=== PATIENT | female | born 1975 | race Caucasian/White ===

== ENCOUNTER 2019-03-04 07:00 | Outpatient (CLI) | payer OTHER ==
[2019-03-04 20:39] LABS: CANDIDA GROUP DNA NEGATIVE (NEGATIVE); CANDIDA KRUSEI DNA NEGATIVE (NEGATIVE); TRICHOMONAS VAGINALIS DNA NEGATIVE (NEGATIVE)
[2019-03-04 22:15] LABS: TRICHOMONAS VAGINALIS DNA NEGATIVE (NEGATIVE)
== END 2019-03-04 23:59 | disposition home or self-care (01) ==
LOC: LAB.R 07:00
PROVIDERS: ATTEND Obstetrics & Gynecology
DX: T19.2XXA Foreign body in vulva and vagina, initial encounter (principal)
CPT/HCPCS: 87491; 87591; 87661; 87801

== ENCOUNTER 2023-02-27 12:53 | Outpatient (CLI) | payer OTHER ==
--- NOTE | 2023-03-02 10:00 | Mammography Report ---
BILATERAL DIGITAL SCREENING MAMMOGRAM 3D/2D WITH EXAGGERATED CC: 02/27/2023 CLINICAL: Routine screening. Multiple family members with breast cancer. Comparison is made to exams dated: 02/02/2019 mammogram and 12/26/2015 mammogram - [facility]. Both breasts are heterogeneously dense, which may obscure small masses (category c / 51-75% glandular tissue). There is a possible new oval equal density asymmetry with coarse calcifications in the right breast p osterior depth superior region seen on the mediolateral oblique view only. No other significant masses, calcifications, or other findings are seen in either breast. IMPRESSION: INCOMPLETE: NEEDS ADDITIONAL IMAGING EVALUATION The possible new oval equal density asymmetry in the right breast resembles fibroglandular tissue and is indeterminate. Additional views with possible ultrasound are recommended. Based on Tyrer-Cuzick model (a risk assessment model), the patient's lifetime risk is 30.3% and her 1 0 year risk is 6.8%. If a patient has an elevated risk, a more comprehensive evaluation should be con sidered and/or a referral to a genetic counselor. The [place] [employer], [place], and NCCN Guidelines advise the consideration of Breast MRI as an adjunct to screening mammog sameer in patients whose "Lifetime risk to develop breast cancer" is 20% or higher. This exam was interpreted at Station ID: [id number]. NOTE: For mammograms, a report in lay terms will be sent to the patient. Approximately 15% of breast malignancies will not be visualized mammographically. In the management of a palpable breast mass, a negative mammogram must not discourage biopsy of a clinically suspicious lesion. Electronically Signed By: Adams Brown M.D. aty/:02/27/2023 16:12:08 ACR BI-RADS Category 0: Incomplete 3340F PARENCHYMAL PATTERN: (D) - The breast(s) demonstrate(s) heterogeneously dense fibroglandular paralysha grigsby. BI-RADS CATEGORY: (0) - 0 Mammo and [place] [id number] Immediate follow-up LATERALITY: (R)
== END 2023-02-27 12:54 | disposition home or self-care (01) ==
LOC: DI 12:53
DX: Z12.31 Encounter for screening mammogram for malignant neoplasm of breast (principal); Z80.3 Family history of malignant neoplasm of breast; R92.333 Mammographic heterogeneous density, bilateral breasts; R92.1 Mammographic calcification found on diagnostic imaging of breast; R92.8 Other abnormal and inconclusive findings on diagnostic imaging of breast

== ENCOUNTER 2023-03-26 08:28 | Outpatient (CLI) | payer OTHER ==
--- NOTE | 2023-03-26 12:56 | Mammography Report ---
UNILATERAL RIGHT DIGITAL DIAGNOSTIC MAMMOGRAM 3D/2D WITH MEDIOLATERAL OBLIQUE SPOT COMPRESSION: 024 CLINICAL: Patient returns today to evaluate an asymmetry in the right breast. Comparison is made to exams dated: 02/27/2023 mammogram, 02/02/2019 mammogram, and 12/26/2015 mammogra m - [facility]. The right breast is heterogeneously dense, which may obscure small masses (category c / 51-75% glandu lar tissue). There is a 0.7 cm oval mass with a circumscribed margin in the right breast posterior depth central t o the nipple seen on the mediolateral oblique view only, that triangulates to lateral breast on tomos ynthesis views. This corresponds to asymmetry seen on recent screening mammogram. No other significant masses or calcifications are seen in the breast. IMPRESSION: INCOMPLETE: NEEDS ADDITIONAL IMAGING EVALUATION Right breast 0.7 cm oval mass in the posterior depth central to the nipple on MLO and triangulating t o lateral breast on tomosynthesis view. An ultrasound is recommended for further evaluation and is sc heduled to immediately follow this examination. Based on Tyrer-Cuzick model (a risk assessment model), the patient's lifetime risk is 32.4% and her 1 0 year risk is 7.4%. If a patient has an elevated risk, a more comprehensive evaluation should be con sidered and/or a referral to a genetic counselor. The [place] [employer], [employer] [place] [employer], and NCCN Guidelines advise the consideration of Breast MRI as an adjunct to screening mammog sameer in patients whose "Lifetime risk to develop breast cancer" is 20% or higher. This exam was interpreted at Station ID: [id number]. NOTE: For mammograms, a report in lay terms will be sent to the patient. Approximately 15% of breast malignancies will not be visualized mammographically. In the management of a palpable breast mass, a negative mammogram must not discourage biopsy of a clinically suspicious lesion. Electronically Signed By: Katt Saucedo M.D., PH.D eb/:03/26/2023 10:18:17 ACR BI-RADS Category 0: Incomplete 3340F PARENCHYMAL PATTERN: (D) - The breast(s) demonstrate(s) heterogeneously dense fibroglandular hannah grigsby. BI-RADS CATEGORY: (0) - 0 Ultrasound [id number] Immediate follow-up LATERALITY: (B)
--- NOTE | 2023-03-26 12:56 | Ultrasound Report ---
LIMITED ULTRASOUND OF RIGHT BREAST: 03/26/2023 CLINICAL: Patient returns today to evaluate a focal asymmetry in the right breast. Comparison is made to exams dated: 03/26/2023 mammogram, 02/27/2023 mammogram, 02/02/2019 mammogram, an d 12/26/2015 mammogram - [facility]. Ultrasound of the right breast 8-10 o'clock region was performed. [place] scale images of the real-time examination were reviewed. No sonographic correlate identified for mass seen in the right breast. Head Of Maintenance images taken at 9 o'clock, 6 cm from the nipple. IMPRESSION: SUSPICIOUS OF MALIGNANCY Right breast 0.7 cm asymmetry in the posterior breast central to the nipple seen on MLO view, which t riangulates to lateral breast on tomosynthesis views. No ultrasound correlate identified. Finding is suspicious. Recommend stereotactic guided biopsy. Findings and recommendations were discussed with the patient at the time of imaging completion by Dr. Martin. This exam was interpreted at Station ID: [id number]. Electronically Signed By: Katt Saucedo M.D., PH.D eb/:03/26/2023 10:30:15 Ultrasound BI-RADS: 4 Suspicious for malignancy BI-RADS CATEGORY: (4) - 4 Biopsy [id number] Immediate follow-up LATERALITY: (R)
== END 2023-03-26 08:29 | disposition home or self-care (01) ==
LOC: DI 08:28
PROVIDERS: ATTEND Physician Assistant Medical
DX: R92.8 Other abnormal and inconclusive findings on diagnostic imaging of breast (principal); R92.331 Mammographic heterogeneous density, right breast